=== PATIENT | male | born 1995 | race Caucasian/White ===

== ENCOUNTER 2017-04-23 23:27 | Emergency (ER) | payer OTHER ==
--- NOTE | ~2017-04-23 | ER ---
PATIENT'S NAME: HOSSEIN YBARRA [facility] AGE: 21 Y [address] ROOM: [place] [id number] LOCATION: [facility] ADMIT DATE: 04/23/2017 ER/Outpatient Report DISCHARGE DATE: 04/23/2017 FAMILY PHYSICIAN: Adithya Medina MD ATTENDING PHYSICIAN: Hossein Magallanes Time of Arrival: 2331 hours. Time of Evaluation: 2335 hours. CHIEF COMPLAINT: Cold and congestion. HISTORY OF PRESENT ILLNESS: The patient states he has been cold for the past week. It started out with some chest congestion, got better, and then has gotten worse in the last 3 to 4 days. He has been coughing, has had runny nose, sore throat, chills at times. ALLERGIES: PENICILLIN. CURRENT MEDICATIONS: None. PAST MEDICAL HISTORY: Bipolar, depression, ADHD. SOCIAL HISTORY: He smokes 1 pack every 2 weeks. Denies use of drugs or alcohol. REVIEW OF SYSTEMS: All negative other than those mentioned in the HPI. PHYSICAL EXAMINATION: VITAL SIGNS: He weighed 110.8 kg, blood pressure is 150/88, pulse of 105, respirations 20, temperature of 99 tympanic, O2 saturation is 98% on room air. GENERAL: He is awake, alert, and oriented x4. SKIN: Carefree, warm, and dry. RESPIRATIONS: Even and nonlabored. HEENT: TMs are injected. Fluid is noted behind. Nasal is red and boggy. Oropharynx is red posteriorly. No exudate is noted. NECK: Supple. No lymphadenopathy. LUNGS: Lung sounds are clear throughout. HEART: Regular rate and rhythm. PATIENT'S NAME: HOSSEIN YBARRA [facility] AGE: 21 Y [address] ROOM: [place] [id number] LOCATION: [facility] ADMIT DATE: 04/23/2017 ER/Outpatient Report DISCHARGE DATE: 04/23/2017 FAMILY PHYSICIAN: Adithya Medina MD ATTENDING PHYSICIAN: Hossein Magallanes ASSESSMENT: Sinusitis. PLAN: Home, rest, fluids, Tylenol or ibuprofen as needed for fever and discomfort. Prescription was written for cefdinir 300 mg b.i.d. x10 days. If his symptoms persist or worsen, he is to follow up with his primary provider. He verbalized understanding. XIMENA STANFORD APRN FOR [facility] [place]/modl /[id number] d: 04/24/17145 t: 04/25/172006, OUTPATIENT REPORT
== END 2017-04-23 23:50 | disposition disaster alternative care site (69) ==
LOC: GMED 23:27
DX: J32.9 Chronic sinusitis, unspecified (principal); F17.210 Nicotine dependence, cigarettes, uncomplicated; F32.9 Major depressive disorder, single episode, unspecified; F90.9 Attention-deficit hyperactivity disorder, unspecified type